=== PATIENT | male | born 1955 | race Caucasian/White ===

== ENCOUNTER 2019-08-27 14:46 | Emergency (ER) | payer MEDICAID ==
--- NOTE | 2019-08-27 15:34 | EDM.PDOC ---
ED HPI GENERAL MEDICAL PROBLEM - General Chief Complaint: Bite:Animal, Insect Stated Complaint: DEER TICK Time Seen by Provider: 08/27/19 15:20 Source of Information: Reports: Patient History Limitations: Reports: No Limitations - History of Present Illness INITIAL COMMENTS - FREE TEXT/NARRATIVE: 64-year-old male that was bit on the right lateral chest by a tick a week ago, now is developing nightly chills and fever but no other symptoms. No shortness of breath or cough. Onset: Gradual Duration: Day(s): (Fevers intermittent for the last 3 days) Generalized Pain Score (Numeric/FACES): 8 - Related Data Allergies Allergy/AdvReac Type Severity Reaction Status Date / Time No Known Allergies Allergy Verified 08/27/19 15:08 Home Meds: Home Meds NK [No Known Home Meds] 08/27/19 [History] Past Medical History HEENT History: Reports: Impaired Vision - Past Surgical History Head Surgeries/Procedures: Reports: None HEENT Surgical History: Reports: None Dermatological Surgical History: Reports: None Social & Family History - Tobacco Use Smoking Status *Q: Former Smoker Used Tobacco, but Quit: Yes Month/Year Tobacco Last Used: 02/2019 Second Hand Smoke Exposure: No - Caffeine Use Caffeine Use: Reports: Coffee, Tea - Alcohol Use Days Per Week of Alcohol Use: 3 Number of Drinks Per Day: 3 Total Drinks Per Week: 9 - Recreational Drug Use Recreational Drug Use: No ED ROS GENERAL - Review of Systems Review Of Systems: See Below Constitutional: Reports: Fever, Chills, Malaise HEENT: Reports: No Symptoms Respiratory: Denies: Shortness of Breath, Cough Cardiovascular: Denies: Chest Pain GI/Abdominal: Denies: Nausea, Vomiting Skin: Reports: Other (Tick bite with small area of inflammation over the right lateral chest, no target lesion or erythema) ED EXAM, ANIMAL BITE - Physical Exam Exam: See Below Exam Limited By: No Limitations General Appearance: Alert, No Apparent Distress Head: Atraumatic Respiratory/Chest: No Respiratory Distress, Lungs Clear Cardiovascular: Regular Rate, Rhythm Neurological: Alert, Oriented Psychiatric: Normal Affect, Normal Mood Skin Exam: Other (There is a small bite on the right lateral chest with 1.5 cm surrounding erythema) Course - Vital Signs Last Recorded V/S: Last Vital Signs Temp 101.4 F H 08/27/19 15:09 Pulse 112 H 08/27/19 15:09 Resp 16 08/27/19 15:09 BP 160/102 H 08/27/19 15:09 Pulse Ox 98 08/27/19 15:09 Departure - Departure Time of Disposition: 15:40 Disposition: Home, Self-Care 01 Clinical Impression: Tick bite of chest wall Qualifiers: Encounter type: initial encounter Laterality: right Qualified Code(s): S20.361A - Insect bite (nonvenomous) of right front wall of thorax, initial encounter - Discharge Information Instructions: Tick Bite Information, Adult, [id number] Referrals: PCP,None [Primary Care Provider] - Forms: ED Department Discharge Care Plan Goals: Take doxycycline for a full 10 days as directed, and consider rechecking in 3 to 4 days if not improving satisfactorily. Sepsis Event Note - Evaluation Sepsis Screening Result: Possible Sepsis Risk - Focused Exam Vital Signs: Vital Signs Temp Pulse Resp BP Pulse Ox 08/27/19 15:09 101.4 F H 112 H 16 160/102 H 98 08/27/19 15:06 101.4 F H 112 H 16 160/102 H 98 Date Exam was Performed: 08/27/19 Time Exam was Performed: 16:17
== END 2019-08-27 15:40 | disposition home or self-care (01) ==
LOC: JP.ED 14:46
DX: S20.361A Insect bite (nonvenomous) of right front wall of thorax, initial encounter (principal); Z87.891 Personal history of nicotine dependence; W57.XXXA Bitten or stung by nonvenomous insect and other nonvenomous arthropods, initial encounter
CPT/HCPCS: 99283